=== PATIENT | female | born 1960 | race Caucasian/White ===

== ENCOUNTER 2019-01-13 17:07 | Emergency (ER) | payer MEDICAID ==
[~2019-01-13] VITALS: Ht 170.2 cm; Wt 77.1 kg
[2019-01-13 17:14] VITALS: Ht 170.2 cm; Wt 77.1 kg
[2019-01-13 22:02] VITALS: BP 128/64
== END 2019-01-13 22:02 | disposition home or self-care (01) ==
LOC: ED 17:07
DX: S39.012A Strain of muscle, fascia and tendon of lower back, initial encounter (principal); S80.12XA Contusion of left lower leg, initial encounter; R51 Headache; Z98.890 Other specified postprocedural states; V43.62XA Car passenger injured in collision with other type car in traffic accident, initial encounter; Y93.89 Activity, other specified; Y92.488 Other paved roadways as the place of occurrence of the external cause; Y99.8 Other external cause status